=== PATIENT | male | born 1970 | race Caucasian/White ===

== ENCOUNTER 2024-10-07 15:08 | Outpatient (OUT) | payer BC, SELFPAY ==
--- OUTSIDE RECORDS SUMMARY | 2024-10-07 15:15 | XMS_ITS | Encounter Summary ---
Author Organization [employer] tem Address [id number] [address] [place] [address] Care Team Providers Care Coal Pulverizer Operator Name Role Phone Pleasant HallRenay barr SOULEYMANETOOL SETTER Primary Care Provid er Reason for Visit * Reason Comments Med Refill Encounter Details Date Type Department Care Team (Late st Contact Info) Description 09/08/2022 Refill [facility] [address] [place] [phone] Deyvi Morley, LICENSED PHYSICAL THERAPIST-TOOL SETTER [address], [facility] [address] [place] [address] Essential hypertension; Mixed hyperlipidemia Social History Tobacco Use Types Packs/Day Years Used Date Smoking Tobacco: Never Smokeless Tobacco: Never Alcohol Use Standard Drinks/Week Comments Yes 1 (1 standard drink = 0.6 oz pur e alcohol) PHQ-2 Answer Date Recorded Total Score 0 07/05/2022 Childcare Answer Date Recorded Childcare Unknown 06/14/2020 Employment Answer Date Recorded Employment Unknown 06/14/2020 Hunger Screening Answer Date Recorded Within the past 12 months we worried whether our food would run out before we got money to buy more. Never True 07/05/2022 Within the past 12 months th e food we bought just didn't last and we didn't have money to get more. Never True 07/05/2022 Purpose - Life Answer Date Recorded Purpose and direction in life Unknown Sex and Gender Information Value Date Recorded Sex Assigned at Not on file Legal Sex Male 12:19 PM EDT Gender Identity Not on file Sexual Orientation Not on file documented as of this encounter Plan of Treatment Upcoming Encounters Date Type Department Care Team (Late st Contact Info) Description 01/06/2025 4:00 PM EST Office Visit [facility] [address] [place] [phone] Renay Wilkins APRN-CNP [address] [place] [address] documented as of this encounter Visit Diagnoses Diagnosis Essential hypertension Unspecified essential hypertension Mixed hyperlipidemia documented in this encounter Additional Health Concerns Assessment Noted Time PHQ-9 Depression Total Score: 0 07/06/19 23 3:14 PM EDT documented as of this encounter Care Teams Coal Pulverizer Operator Relationship Specialty Start Date End Date Renay Wilkins APRN-CNP [address] [place] [phone] PCP - General Family Medicine 07/18/23 documented as of this encounter
--- OUTSIDE RECORDS SUMMARY | 2024-10-07 15:15 | XMS_ITS | Encounter Summary ---
Author Organization [employer] tem Address [id number] [address] [place] [address] Care Team Providers Care Tie Worker Name Role Phone Renay Wilkins Primary Care Provid er Encounter Details Date Type Department Care Team (Late Contact Info) Description 09/14/2020 Orders Only [facility] [address] [place] [address] Dorita Schreiber MA Closed nondisplaced fracture of greater tuberosity of right humerus, initial encounter Social History Tobacco Use Types Packs/Day Years Used Date Smoking Tobacco: Never Smokeless Tobacco: Never Alcohol Use Standard Drinks/Week Comments Yes 1 (1 standard drink = 0.6 oz pur e alcohol) PHQ-2 Answer Date Recorded Total Score 0 06/17/2020 Childcare Answer Date Recorded Childcare Unknown 06/14/2020 Employment Answer Date Recorded Employment Unknown 06/14/2020 Purpose - Life Answer Date Recorded Purpose and direction in life Unknown Sex and Gender Information Value Date Recorded Sex Assigned at Not on file Legal Sex Male 12:19 PM EDT Gender Identity Not on file Sexual Orientation Not on file documented as of this encounter Plan of Treatment Upcoming Encounters Date Type Department Care Team (Late Contact Info) Description 01/06/2025 4:00 PM EST Office Visit [facility] [address] [place] [phone] Renay Wilkins APRN-CNP [address] [place] [address] documented as of this encounter Procedures Procedure Name Priority Date/Time Associated Diagnosis Comments AMB REFERRAL TO ORTHOPEDIC SURGERY Routine 08/17/2020 Closed nondisplaced fracture of greater tuberosity of right humerus, initial encounter documented in this encounter Results * Ambulatory referral to Orthopedic Surgery (08/17/2020) Deyvi Morley SWING DRIVER-VP STRATEGY OUTPATIENT REFERRAL OR DERABLES Final Result MANUALLY TRANSCRIBED RESULTS documented in this encounter Visit Diagnoses Diagnosis Closed nondisplaced fracture of greater tuberosity of right humerus, initial encounter documented in this encounter Additional Health Concerns Assessment Noted Time PHQ-9 Depression Total Score: 0 06/18/19 21 3:17 PM EDT documented as of this encounter Care Teams Tie Worker Relationship Specialty Start Date End Date Renay Wilkins APRN-CNP [address], [facility] [address] [place] [phone] PCP - General Family Medicine 07/18/23 documented as of this encounter
--- OUTSIDE RECORDS SUMMARY | 2024-10-07 15:15 | XMS_ITS | Encounter Summary ---
Author Organization [facility] Address [address] [place] [address] Care Team Providers Care Automotive Technology Instructor Name Role Phone Renay Wilkins CNP Primary Care Provider [phone] Reason for Visit * Reason Comments Med Refill Encounter Details Date Type Department Care Team (Late st Contact Info) Description 09/30/2024 Refill [facility] [address] [place] [address] Larissa Guillen CNP [address] [place] [address] Primary cardiomyopathy (CMS/HCC) Social History Tobacco Use Types Packs/Day Years Used Date Smoking Tobacco: Never Smokeless Tobacco: Never Alcohol Use Standard Drinks/Week Comments Yes 0 (1 standard drink = 0.6 oz pur e alcohol) occasional [place] Safety & Environment Answer Date Rec orded Fear of Current or Ex-Partner Not on file Emotionally Abused Not on file 04/25/2023 Physically Abused Not on file 04/25/2023 Sexually Abused Not on file 04/25/2023 Physically or Sexually Abused Not on file Sex and Gender Information Value Date Recorded Sex Assigned at Not on file Legal Sex Male 11:15 PM EDT Gender Identity Not on file Sexual Orientation Not on file documented as of this encounter Plan of Treatment Not on file documented as of this encounter Visit Diagnoses Diagnosis Primary cardiomyopathy (CMS/HCC) Other primary cardiomyopathies documented in this encounter Care Teams Automotive Technology Instructor Relationship Specialty Start Date End Date Renay Wilkins CNP PCP - General Family Medicine 09/13/23 documented as of this encounter
--- OUTSIDE RECORDS SUMMARY | 2024-10-07 15:15 | XMS_ITS | Encounter Summary ---
Author Organization [employer] tem Address [id number] [address] [place] [address] Care Team Providers Care Explosive Ordnance Technician Name Role Phone [place], Renay JACKMAN Primary Care Provid er Encounter Details Date Type Department Care Team (Late Contact Info) Description 07/15/2020 Orders Only [facility] [address] [place] [address] Tana Marshall CMA Encounter for colorectal cancer screening Social History Tobacco Use Types Packs/Day Years [...] on file Sexual Orientation Not on file COVID-19 Exposure Response Date Recorded In the last month, have you been in contact with someone who was confirmed or suspected to have Coronavirus / COVID-19? No / Unsure 06/17/2020 2:59 PM EDT documented as of this encounter Plan of Treatment Upcoming Encounters Date Type Department Care Team ([facility] Contact Info) Description 01/06/2025 4:00 PM EST Office Visit [facility] [address] [facility] [address] [place] [address] Renay Wilkins APRN-CNP [address], [facility] [address] [place] [address] documented as of this encounter Procedures Procedure Name Priority Date/Time Associated Diagnosis Comments COLOGUARD NON-[facility] Routine 07/06/2020 Encounter for colorectal cancer screening documented in this encounter Results * Cologuard Non-[facility] (07/06/2020) EXTERNAL COLOGUARD Negative MANUALLY TRANSCRIBED RESULTS 07/06/2020 Deyvi JACKMAN LAB ORDERABLES Final Result MANUALLY TRANSCRIBED RESULTS documented in this encounter Visit Diagnoses Diagnosis Encounter for colorectal cancer screening documented in this encounter Additional Health Concerns Assessment Noted Time PHQ-9 Depression Total Score: 0 06/18/19 21 3:17 PM EDT documented as of this encounter Care Teams Explosive Ordnance Technician Relationship Specialty Start Date End Date Renay Wilkins APRN-CNP [address], [facility] [address] [place] [address] PCP - General Family Medicine 07/18/23 documented as of this encounter
--- OUTSIDE RECORDS SUMMARY | 2024-10-07 15:15 | XMS_ITS | Encounter Summary ---
Author Organization [employer] Address [facility]-[id number] [address] [place] [address] Care Team Providers Care Float Operator Name Role Phone Gisela Wilkinsthinicole JACKMAN Primary Care Provid er Reason for Visit * Reason Comments Med Refill Encounter Details Date Type Department Care Team (Late st Contact Info) Description 06/19/2022 Refill [facility] [address] [place] [phone] Deyvi Morley APRN-DRY WALL FINISHER [address] [address] Essential hypertension Social History Tobacco Use Types Packs/Day Years Used Date Smoking Tobacco: Never Smokeless Tobacco: Never Alcohol Use Standard Drinks/Week Comments Yes 1 (1 standard drink = 0.6 oz pur e alcohol) PHQ-2 Answer Date Recorded Total Score 0 07/04/2021 Childcare Answer Date Recorded Childcare Unknown 06/14/2020 Employment Answer Date Recorded Employment Unknown 06/14/2020 Purpose - Life Answer Date Recorded Purpose and direction in life Unknown Sex and Gender Information Value Date Recorded Sex Assigned at Not on file Legal Sex Male 12:19 PM EDT Gender Identity Not on file Sexual Orientation Not on file documented as of this encounter Miscellaneous Notes * Telephone Encounter - AUGUSTINA Whittaker - 06/19/2022 1:44 AM EDT Clarify PCP * Telephone Encounter - Tana Marshall CMA - 06/19/2022 1:44 AM EDT Patient states he was unaware that the [place] office was closing, but he is going to stay with the group. He is scheduled to see Beverley on 07/03/2022. documented in this encounter Plan of Treatment Upcoming Encounters Date Type Department Care Team (Late st Contact Info) Description 01/06/2025 4:00 PM EST Office Visit [facility] [address] [place] [phone] Renay Wilkins APRN-CNP [address] [place] [phone] documented as of this encounter Visit Diagnoses Diagnosis Essential hypertension Unspecified essential hypertension documented in this encounter Additional Health Concerns Assessment Noted Time PHQ-9 Depression Total Score: 0 07/05/19 22 2:00 PM EDT documented as of this encounter Care Teams Float Operator Relationship Specialty Start Date End Date Renay Wilkins APRN-CNP [address] [place] [phone] PCP - General Family Medicine 07/18/23 documented as of this encounter
--- OUTSIDE RECORDS SUMMARY | 2024-10-07 15:15 | XMS_ITS | Encounter Summary ---
Author Organization [employer] Address [id number] [address] [place] [address] Care Team Providers Care Baker Name Role Phone Renay Wilkins Primary Care Provid er Reason for Visit * Reason Comments Med Refill Encounter Details Date Type Department Care Team (Late st Contact Info) Description 09/20/2024 Refill [facility] [address] [place] [address] Deyvi Morley, FINANCIAL COMPLIANCE OFFICER-LICENSED RETAIL SUPERVISOR [address], [address] [place] [address] Mixed hyperlipidemia Social History Tobacco Use Types Packs/Day Years Used Date Smoking Tobacco: Never Smokeless Tobacco: Never Alcohol Use Standard Drinks/Week Comments Yes 1 (1 standard drink = 0.6 oz pur e alcohol) Overall Financial Resource Strain (CARDIA) Answe r Date Recorded How hard is it for you to pa y for the very basics like food, housing, medical care, and heating? Somewhat hard 07/16/2023 PHQ-2 Answer Date Recorded Total Score 0 01/15/2024 PRAPARE - Transportation Answer Date Re corded In the past 12 months, has l ack of transportation kept you from medical appointments or from getting medications? No 07/02 In the past 12 months, has l ack of transportation kept you from meetings, work, or from getting things needed for daily living? No 07/16/2023 Housing Instability Answer Date Recorde d Are you worried or concerned that in the next two months you may not have stable housing that you own, rent or stay in as a part of a household? No 07/16/2023 Childcare Answer Date Recorded Childcare Unknown 06/14/2020 Employment Answer Date Recorded Employment Unknown 06/14/2020 Hunger Screening Answer Date Recorded Within the past 12 months we worried whether our food would run out before we got money to buy more. Never True 01/15/2024 Within the past 12 months th e food we bought just didn't last and we didn't have money to get more. Never True 01/15/2024 Purpose - Life Answer Date Recorded Purpose and direction in life Unknown Sex and Gender Information Value Date Recorded Sex Assigned at Not on file Legal Sex Male 12:19 PM EDT Gender Identity Not on file Sexual Orientation Not on file documented as of this encounter Miscellaneous Notes * Telephone Encounter - AUGUSTINA Whittaker - 09/20/2024 6:06 PM EDT documented in this encounter Plan of Treatment Upcoming Encounters Date Type Department Care Team (Late st Contact Info) Description 01/06/2025 4:00 PM EST Office Visit [facility] [address] [facility] [address] [place] [address] Renay Wilkins APRN-CNP [address] [facility] [address] [place] [address] documented as of this encounter Visit Diagnoses Diagnosis Mixed hyperlipidemia documented in this encounter Additional Health Concerns Assessment Noted Time PHQ-9 Depression Total Score: 0 01/15/20 24 3:43 PM EST documented as of this encounter Care Teams Baker Relationship Specialty Start Date End Date Renay Wilkins APRN-CNP [address] [facility] [address] [place] [address] PCP - General Family Medicine 07/18/23 documented as of this encounter
--- OUTSIDE RECORDS SUMMARY | 2024-10-07 15:15 | XMS_ITS | Encounter Summary ---
Author Organization [employer] s [employer] Address [id number] [address] [place] [address] Care Team Providers Care Cant Hooker Name Role Phone Renay Wilkins Primary Care Provid er Encounter Details Date Type Department Care Team (Late Contact Info) Description 06/14/2020 Orders Only [facility] [address] [place] [phone] Ref Prov, [place] [address] Social History Tobacco Use Types Packs/Day Years Used Date Smoking Tobacco: Never Assessed PHQ-2 Answer Date Recorded Total Score 0 [...] Office Visit [facility] [address] [facility] [address] [place] [address] Renay Wilkins APRN-CNP [address], [address] [place] [address] documented as of this encounter Procedures Procedure Name Priority Date/Time Associated Diagnosis Comments XR SHOULDER RT MIN 2 VWS Routine 06/13/2020 documented in this encounter Results * X-ray shoulder right minimum 2 views (06/13/2020) Anatomical Region Laterality Modality MSK, Upper Extremities, Shoulder Right Computed Radiography us Not In System Ref Prov IMG DIAGNOSTIC IMAGING OR DERABLES Final Result documented in this encounter Visit Diagnoses Not on filedocumented in this encounter Care Teams Cant Hooker Relationship Specialty Start Date End Date Renay Wilkins APRN-CNP [address], [address] [place] [phone] PCP - General Family Medicine 07/18/23 documented as of this encounter
--- OUTSIDE RECORDS SUMMARY | 2024-10-07 15:15 | XMS_ITS | Encounter Summary ---
Author Organization [facility] Address [address] [place] [address] Care Team Providers Care Team Foreman Name Role Phone Latricia Ch MD Primary Care Provider Larry Joaquin MD Unavailable [phone] Bry Medina MD Unavailable [phone] Deyvi Morley CNP Primary Care Provider [phone] Encounter Details Date Type Department Care Team (Late st Contact Info) Description 03/17/2020 Telephone Cardiovascular Imaging Lab [facility] [address] [place] [address] Aida Gama RN Social History Tobacco Use Types Packs/Day Years Used Date Smoking Tobacco: Never Smokeless Tobacco: Never Alcohol Use Standard Drinks/Week Comments No 0 (1 standard drink = 0.6 oz pur e alcohol) Sex and Gender Information Value Date Recorded Sex Assigned at Not on file Legal Sex Male 11:59 AM EDT Gender Identity Male 07/04/2017 10:43 AM EDT Sexual Orientation Choose not to disclose 2024 6:01 PM EDT COVID-19 Exposure Response Date Recorded In the last month, have you been in contact with someone who was confirmed or suspected to have Coronavirus / COVID-19? Unable to assess 03/14/2020 12:57 PM EST documented as of this encounter Functional Status * Are you deaf or do you have serious difficulty hearing? Answer Date of Assessment Author No 02/14/2018 5:20 PM EST Chula Burnett RN * Are you blind or do you have serious difficulty seeing, even when wearing glasses? Answer Date of Assessment Author No 02/14/2018 5:20 PM Chula Alvarado RN * Do you have serious difficulty walking or climbing stairs (5 years or older)? Answer Date of Assessment Author No 02/14/2018 5:20 PM Chula Alvarado RN * Do you have difficulty dressing or bathing (5 yrs or older)? Answer Date of Assessment Author No 02/14/2018 5:20 PM Chula Alvarado RN * Because of a physical, mental, or emotional condition, do you have difficulty doing errands alone such as visiting a doctor's office or shopping (5 yrs or older)? Answer Date of Assessment Author No 02/14/2018 5:20 PM Chula Alvarado RN documented as of this encounter Mental Status * Because of a physical, mental, or emotional condition, do you have serious difficulty concentrating, remembering, or making decisions (5 yrs or older)? Answer Entry Date Author No 02/14/2018 5:20 PM Chula Alvarado RN documented in this encounter Miscellaneous Notes * Telephone Encounter - Aida Gama RN - 03/17/2020 1:29 PM EST PENS NOTE Called and left detailed VM to confirm arrival time 0600 03/25. Reminded to be NPO after midnight, visitor policy reviewed and to HOLD Xarelto the night before procedure. Instructed that I put COVID order in for [facility] 03/22. Number left to call with any questions COVID screening completed by asking the patient the following question: Have you had new onset of flu-like symptoms, fever, chills, or loss of taste/smell over the past 5 days? Patient answered: NO Patient informed to call the procedural department or physician if they develop any symptoms listedabove or if they have changes in health prior to their procedure. The patient was instructed to self-isolate once the covid test is collected until procedure, remaining at home or their yard, with no visitors. The patient was instructed that they are only to leave home for urgent medical care (not routine care), as long as they are wearing a facemask and performing appropriate hand hygiene. Home health visits are allowed provided both the patient and home health provider wear a facemask. Patient to arrive at [facility] testing site on 03/22 documented in this encounter Plan of Treatment Upcoming Encounters Date Type Department Care Team (Late st Contact Info) Description 06/01/2025 7:30 AM EDT Office [facility] [address] [place] [address] Jocelyne Godinez, PROGRAM CONSULTANT-AMBULANCE OFFICER [address] [place], [place] [phone] [place] [address] documented as of this encounter Visit Diagnoses Not on filedocumented in this encounter Additional Health Concerns Infection Onset Date Last Indicated Resolved Time COVID-19 Suspected 03/22/2020 03/22/2020 5:47 PM EST documented as of this encounter Care Teams Team Foreman Relationship Specialty Start Date End Date Latricia Ch MD PCP - General Internal Medicine 07/03/17 03/24/20 Larry Joaquin MD [address] [place] [phone] PCP - Referring 1 Clinical Cardiac Electrophysiology 02/13/18 Bry Medina MD [address] [place] [address] PCP - Referring 2 Cardiovascular Disease 02/14/18 Deyvi Morley CNP [address] [place] [phone] PCP - General Nurse Practitioner - Adult Health 01/05/21 documented as of this encounter
--- OUTSIDE RECORDS SUMMARY | 2024-10-07 15:15 | XMS_ITS | Clinical Summary ---
Author Organization RABT tem Address [facility] [id number] [address] [place] [address] Care Team Providers Care Head Refrigeration Engineer Name Role Phone Renay Wilkins Primary Care Provid er Allergies Active Allergy Reactions Criticality Noted Date Comments Doxycycline Rash Low 01/02/2015 Facial swelling Other Reaction(s): hives Facial swelling Facial swelling Medications rivaroxaban (XARELTO) 20 mg tablet tablet Take 1 tablet (20 mg total) by mouth daily with dinner. Active lisinopriL (PRINIVIL,ZESTRIL ) 5 mg tabletIndications :Essential hypertension TAKE 1 TABLET EVERY MORNING 90 tablet 3 023 Active Additional Information Patient taking differently: 2.5 mg oral Daily, Reported on 01/15/2024 carvediloL (COREG) 25 mg tabletIndications :Essential hypertension TAKE 1 TABLET EVERY MORNINGAND 1 TABLET EVERY EVENING WITH MEALS 180 tablet 1 025 Active cholecalciferol, vitamin D3, 2,000 units capsuleIndication s:Vitamin D deficiency TAKE 1 CAPSULE (2,000 UNITS) BY MOUTH IN THE MORNING 90 capsule 1 025 Active fenofibrate (TRICOR) 145 mg tabletIndications :Mixed hyperlipidemia TAKE 1 TABLET EVERY MORNING 90 tablet 3 025 Active fenofibrate (TRICOR) 145 mg tabletIndications :Mixed hyperlipidemia take 1 tablet every morning 90 tablet 3 024 2024 Discontinued Active Problems Problem Noted Date Diagnosed Date Closed nondisplaced fracture of greater tuberosity of right humerus 07/18/2023 Mixed hyperlipidemia 07/21/2020 Coronary atherosclerosis 06/17/2020 Overweight (BMI 25.0-29.9) 06/17/2020 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 its 06/17/2020 Cerebral infarction 10/22/2013 Overview (07/18/2023): STABLE NO WEAKNESS STABLE NO WEAKNESS Disorder of gallbladder 06/30/2013 Primary cardiomyopathy 06/23/2013 Overview (07/18/2023): IMPROVED AND RESOLVED TO NL EF W/O WMA'S IMPROVED AND RESOLVED TO NL EF W/O WMA'S Congestive heart failure 06/17/2013 Hypertensive disorder 06/17/2013 Atrial flutter 06/17/2013 PAF (paroxysmal atrial fibrillation) 06/07/2013 Overview (07/18/2023): Added automatically from request for surgery [id number] Added automatically from request for surgery [id number] Added automatically from request for surgery [id number] Added automatically from request for surgery [id number] Chest pain 06/07/2013 Resolved Problems Problem Noted Date Diagnosed Date Resolved Date Nondisplaced fracture of humerus 06/17/2020 07/04/2021 Encounters Date Type Department Care Team Description 09/20/2024 Refill [facility] [address] [place] [phone] Deyvi Morley, FOOD COURT TEAM MEMBER-SUPERVISOR MOLDING Mixed hyperlipidemia 09/02/2024 Refill [facility] [address] [place] [address] Renay Wilkins APRN-SUPERVISOR MOLDING Vitamin D deficiency 08/19/2024 Refill [facility] [address] [place] [address] Renay Wilkins, FOOD COURT TEAM MEMBER-SUPERVISOR MOLDING Essential hypertension from Last 3 Months Immunizations Immunization Administration Dates Next Due Influenza, Injectable, quadrivalent (PF) 020,12/02/2018,01/07/2018 Family History Medical History Relation Name Comments No Known Problems Brother Coronary artery disease Father Heart attack Father Hypertension Father Atrial fibrillation Mother No Known Problems Sister 1 No Known Problems Sister 2 No Known Problems Sister 3 No Known Problems Sister 4 No Known Problems Sister 5 No Known Problems Sister 6 Relation Name Status Comments Brother Alive Father Alive Mother Alive Sister 1 Alive Sister 2 Alive Sister 3 Alive Sister 4 Alive Sister 5 Alive Sister 6 Alive Social History Tobacco Use Types Packs/Day Years Used Date Smoking Tobacco: Never Smokeless Tobacco: Never Tobacco Cessation:Counseling Given: Not Answered Alcohol Use Standard Drinks/Week Comments Yes 1 [...] on file Sexual Orientation Not on file Last Filed Vital Signs Vital Sign Reading Time Taken Comments Blood Pressure 122/84 01/15/2024 3:43 PM EST Pulse 67 01/15/2024 3:43 PM EST Temperature 36.9 C (98.4 F) 06/17/2020 3:17 PM EDT Respiratory Rate 18 07/18/2023 3:34 PM EDT Oxygen Saturation 99% 01/15/2024 3:43 PM EST Inhaled Oxygen Concentration - - Weight 101.2 kg (223 lb 3.2 oz) 01/15/2024 3:43 PM EST Height 190.5 cm (6' 3 ) 01/15/2024 3:43 PM EST Body Mass Index 27.9 01/15/2024 3:43 PM EST Plan of Treatment Upcoming Encounters Date Type Department Care Team (Late st Contact Info) Description 01/06/2025 4:00 PM EST Office Visit [facility] [address] [place] [phone] FrankyRenay sampson, FOOD COURT TEAM MEMBER-SUPERVISOR MOLDING [address] [place] [address] Health Maintenance Due Date Last Done Comments Adult BMI Follow Up Plan 1986 DTaP,Tdap and Td Vaccines (1 - Tdap) 05/06/1987 Zoster (Shingles) Vaccine (1 of 2) 2018 Influenza Vaccine 11/02/2024 12/01/2019, , 01/07/2018 Adult BMI Screening 01/14/2025 01/15/2024 Depression Screening 01/14/2025 01/15/2024 Tobacco Screening 01/15/2025 01/16/2024 Medical Devices Not on file Insurance [employer] Care Teams Head Refrigeration Engineer Relationship Specialty Start Date End Date Renay Wilkins APRN-TATIANA [address], [address] [address] PCP - General Family Medicine 07/18/23
--- OUTSIDE RECORDS SUMMARY | 2024-10-07 15:15 | XMS_ITS | Encounter Summary ---
Author Organization [facility] Address [address] [place] [address] Care Team Providers Care Day Care Director Name Role Phone Latricia hC MD Primary Care Provider Larry Joaquin MD Unavailable [phone] Bry Medina MD Unavailable [phone] Deyvi Morley CNP Primary Care Provider [phone] Encounter Details Date Type Department Care Team (Late st Contact Info) Description 03/17/2020 Orders Only Cardiovascular Imaging Lab [facility] [address] [place] [address] Aida Gama RN Pre-operative cardiovascular examination (Primary Dx) Social History Tobacco Use Types Packs/Day Years [...] Chula Alvarado RN documented in this encounter Plan of Treatment Upcoming Encounters Date Type Department Care Team (Late st Contact Info) Description 06/01/2025 7:30 AM EDT [facility] [place] [address] [place] [address] Jocelyne Godinez, SIEBEL CRM DEVELOPER-RING BARKER OPERATOR [address] [place] [address] documented as of this encounter Results * NOVEL CORONAVIRUS PCR (03/22/2020 10:49 AM EST) SARS-COV-2 NOT DETECTED NOT DETECTED AURELIANO ZAPIEN 03/22/2020 5:[address] [facility] Comment:Negative results do not preclude SARS-CoV-2 infection and should not be used as the sole basis for treatment or other patient management decisions. Optimum specimen types and timing for peak viral levels during infections caused by SARS-CoV-2 has not been determined. The possibility of a false negative result should especially be considered if the patient's recent exposures or clinical presentation suggest that SARS-CoV-2 infection is probable, and diagnostic tests for other causes of illness (e.g., other respiratory illness) are negative. Collection of a new specimen and re-testing may be necessary if the patient is critically ill or clinically deteriorating. Fluid/Swab NASOPHARYNGEAL SWAB / Unknown 03/22/2020 10:49 AM EST 03/22/2020 10:49 AM EST Narrative [facility] - 03/22/2020 5:47 PM EST This test was performed using performed using real time PCR for the qualitative detection of SARS-CoV-2 nucleic acid and has been approved as Emergency Use Authorization (EUA) for the qualitative detection of SARS-CoV-2 nucleic acid. us Larry Joaquin MD MICROBIOLOGY - GENERAL ORDERABL ES Final Result [facility] [address] [address] documented in this encounter Visit Diagnoses Diagnosis Pre-operative cardiovascular examination- Primary documented in this encounter Additional Health Concerns Infection Onset Date Last Indicated Resolved Time COVID-19 Suspected 03/22/2020 03/22/2020 5:47 PM EST documented as of this encounter Care Teams Day Care Director Relationship Specialty Start Date End Date Latricia Ch MD PCP - General Internal Medicine 07/03/17 03/24/20 Larry Joaquin MD [address] [place] [address] PCP - Referring 1 Clinical Cardiac Electrophysiology 02/13/18 Bry Medina MD [address] [place] [address] PCP - Referring 2 Cardiovascular Disease 02/14/18 Deyvi Morley CNP [address] [place] [address] PCP - General Nurse Practitioner - Adult Health 01/05/21 documented as of this encounter
--- OUTSIDE RECORDS SUMMARY | 2024-10-07 15:15 | XMS_ITS | Clinical Summary ---
Author Organization [facility] Address [address] [place] [address] Care Team Providers Care Loom Starter Name Role Phone Larry Joaquin MD Unavailable Bry Medina MD Unavailable [phone] Deyvi Morley CNP Primary Care Provider [phone] Allergies Active Allergy Reactions Criticality Noted Date Comments Doxycycline Rash 02/14/2018 Facial swelling Medications carveDILOL 12.5 MG Tab tablet Take 1 tablet by mouth 2 times daily. Active Rivaroxaban 20 MG tablet Take 1 tablet by mouth daily with dinner. Active fenofibrate 145 MG tablet Take 1 tablet by mouth daily. 09/28/2021 Active Lisinopril 2.5 MG tablet Take 1 tablet by mouth daily. 90 tablet 3 02/05/2023 Active VITAMIN E PO Take 1 capsule by mouth daily. Active Active Problems Problem Noted Date Diagnosed Date Mixed hyperlipidemia 07/21/2020 ASHD (arteriosclerotic heart disease) 06/17/2020 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 its 06/17/2020 Overweight (BMI 25.0-29.9) 06/17/2020 Atrial fibrillation, persistent 02/09/2020 Overview (02/09/2020): Added automatically from request for surgery [id number] PAF (paroxysmal atrial fibrillation) 10/11/2017 Overview (10/11/2017): Added automatically from request for surgery [id number] Acute ill-defined cerebrovascular disease 2013 Disorder of gallbladder 06/30/2013 Primary cardiomyopathy 06/23/2013 Congestive heart failure 06/17/2013 Encounters Date Type Department Care Team Description 08/23/2024 - 08/23/2024 11:59 PM EDT Hospital Encounter [facility] [address] [place] [address] Arrived Discharge Disposition: Home or Self Care from Last 3 Months Family History Medical History Relation Name Comments Asthma Father Arrhythmia Mother AFIB Diabetes Mother Asthma Sister Relation Name Status Comments Father Alive Mother Alive Sister Social History Tobacco Use Types Packs/Day Years Used Date Smoking Tobacco: Never Smokeless Tobacco: Never Tobacco Cessation:Counseling Given: Not Answered Alcohol Use Standard Drinks/Week Comments No 0 (1 standard drink = 0.6 oz pur e alcohol) Sex and Gender Information Value Date Recorded Sex Assigned at Not on file Legal Sex Male 11:59 AM EDT Gender Identity Male 07/04/2017 10:43 AM EDT Sexual Orientation Choose not to disclose 2024 6:01 PM EDT Last Filed Vital Signs Vital Sign Reading Time Taken Comments Blood Pressure 124/83 06/01/2024 9:16 AM EDT Pulse 69 06/01/2024 9:16 AM EDT Temperature 36.2 C (97.2 F) 02/03/2021 8:15 AM EST Respiratory Rate 18 06/01/2024 9:16 AM EDT Oxygen Saturation 98% 06/01/2024 9:16 AM EDT Inhaled Oxygen Concentration - - Weight 100.1 kg (220 lb 9.6 oz) 06/01/2024 9:16 AM EDT Height 190.5 cm (6' 3 ) 06/01/2024 9:16 AM EDT Body Mass Index 27.57 06/01/2024 9:16 AM EDT Plan of Treatment Upcoming Encounters Date Type Department Care Team (Late st Contact Info) Description 06/01/2025 7:30 AM EDT [facility] [place] [address] [place], [place] [id number] Jocelyne Godinez, RESIDENTIAL DESIGNER-WHEEL FITTER [address] [place] [address] Health Maintenance Due Date Last Done Comments HEPATITIS C VIRUS SCREENING 1968 TETANUS 1968 HIV SCREENING DISCUSSION 05/06/1983 HEP B VACCINE (1 of 3 - 19+ 3-dose series) 05/06/1987 TDAP (ADULT) 05/06/1987 LIPID SCREENING 2008 PNEUMOCOCCAL VACCINE SERIES (1 of 1 - PCV) 2018 ZOSTER (SHINGLES) VACCINE (1 of 2) 2018 COLORECTAL CANCER SCREENING DISCUSSION 07/06/2021 07/06/2020 PROSTATE CANCER SCREENING DISCUSSION 05/06/2023 COVID-19 VACCINE ( season) 2023 INFLUENZA VACCINE (#1) 2024 , 12/02/2018, 01/07/2018 Medical Devices Implanted Type Area Oracle Apex Developer Device Identifier Shelf Expiration Date Model / Serial / Lot System Clin Nurse Spec Insertable Reveal Linq - [id number] Implanted:Qty: 1 on 02/03/2021 by Larry Joaquin MD at [facility] Loop Recorder N/A: Chest [employer] [id number] 10/15/2021 LNQ11 / [id number] / System Clsr Vascade Mvp Vns 6-12fr - [id number] Implanted:Qty: 1 on 03/25/2020 by Chandrakant Amaral MBBS at [facility] Other [facility] [id number]- 10U / [id number] 18A / System Clsr Vascade Mvp Vns 6-12fr - [id number] Implanted:Qty: 1 on 03/25/2020 by Chandrakant Amaral MBBS at [facility] Other [facility] 800-612C- 10U / [id number] 18A / System Clsr Vascade Mvp Vns 6-12fr - [id number] Implanted:Qty: 1 on 03/25/2020 by Chandrakant Amaral MBBS at [facility] 800-612C- 10U / [id number] 18A / Procedures Procedure Name Priority Date/Time Associated Diagnosis Comments DEVICE EVALUATION 08/23/2024 from Last 3 Months Results * DEVICE EVALUATION (08/23/2024) Anatomical Region Laterality Modality Other 08/23/2024 us Other Other OT PROC - OPERATIVE Final Result from Last 3 Months Insurance [facility] PPO POS Advance Directives For more information, please contact: [phone] (7:30 AM - 6PM [facility], Saturday-Saturday) * Full Code (Latest Code Status on File) Date Activated Date Inactivated Comments 02/03/2021 8:16 AM * Full Code Date Activated Date Inactivated Comments 03/25/2020 11:16 AM 02/03/2021 8:16 AM * Full Code Date Activated Date Inactivated Comments 02/14/2018 1:09 PM 03/25/2020 11:16 AM Care Teams Loom Starter Relationship Specialty Start Date End Date Larry Joaquin MD [address] [place] [address] PCP - Referring 1 Clinical Cardiac Electrophysiology 02/13/18 Bry Medina MD [address] [place] [address] PCP - Referring 2 Cardiovascular Disease 02/14/18 Deyvi Morley CNP [address] [place] [phone] PCP - General Nurse Practitioner - Adult Health 01/05/21
--- OUTSIDE RECORDS SUMMARY | 2024-10-07 15:15 | XMS_ITS | Clinical Summary ---
Author Organization [facility] Address [address] [place] [address] Care Team Providers Care Gravel Truck Driver Name Role Phone Renay Wilkins CNP Primary Care Provider [phone] Allergies Active Allergy Reactions Criticality Noted Date Comments Doxycycline Rash Low 01/02/2015 Facial swelling Facial swelling Medications fenofibrate (Tricor) 145 mg tablet Take 1 tablet by mouth in the morning. 09/11/19 23 Active carvedilol (Coreg) 25 mg tablet TAKE 1 TABLET BY MOUTH TWICE A DAY DIRECTED 08/12/19 23 Active Xarelto 20 mg tabletIndications :Unspecified atrial fibrillation (CMS/HCC) TAKE 1 TABLET BY MOUTH EVERY DAY IN THE MORNING 30 tablet 11 02/03/20 24 Active cholecalciferol, vitamin D3, 50 mcg (2,000 unit) capsule Take 2,000 Units by mouth in the morning. Active lisinopril 2.5 mg tabletIndications :Primary cardiomyopathy (CMS/HCC) TAKE 1 TABLET ONCE DAILY ASDIRECTED 90 tablet 3 10/01/19 25 Active lisinopril 2.5 mg tabletIndications :Primary cardiomyopathy (CMS/HCC) Take 1 tablet (2.5 mg) by mouth once daily as directed. 90 tablet 3 09/13/19 24 2024 Discontinued Active Problems Problem Noted Date Diagnosed Date Nondisplaced fracture of gre ater tuberosity of right humerus, initial encounter for closed fracture 07/18/2023 Coronary atherosclerosis 09/24/2022 023 Assessment & Plan (09/13/2023 3:24 PM EDT): Coronary artery disease is unchanged. Continue current medications. Cardiac status will be reassessed in 1 year. Continue GDMT Mixed hyperlipidemia 07/21/2020 09/24/2022 Assessment & Plan (09/13/2023 3:22 PM EDT): Lipid abnormalities are unchanged. Pharmacotherapy as ordered. Lipids will be reassessed by PCP at [place] for 1 year ASHD (arteriosclerotic heart disease) 06/17/2020 09/24/2022 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 its 06/17/2020 09/24/2022 Overweight (BMI 25.0-29.9) 06/17/202009/24 Cerebral infarction 10/22/2013 09/24/2022 Overview (09/24/2022): STABLE NO WEAKNESS Hypertensive disorder 10/18/2013 09/24/2022 PAF (paroxysmal atrial fibrillation) 07/24/2013 09/24/2022 Overview (09/24/2022): Added automatically from request for surgery [id number] Added automatically from request for surgery [id number] Assessment & Plan (09/13/2023 3:19 PM EDT): [facility] monitors ILR Remains on xarelto anticoagulation and denied any bleeding tendencies Continue coreg- rate controlled and in rhythm per assessement Acute ill-defined cerebrovascular disease 201309/24/2022 Disorder of gallbladder 06/30/2013 09/25/19 23 Primary cardiomyopathy 06/23/2013 3 Overview (09/24/2022): IMPROVED AND RESOLVED TO NL EF W/O WMA'S Assessment & Plan (09/13/2023 3:18 PM EDT): LVSF recovered No concerning symptoms currently Continue Coreg, lisinopril and tricor Essential hypertension 06/17/2013 3 Assessment & Plan (09/13/2023 3:23 PM EDT): Hypertension is unchanged. Continue current medications. Blood pressure will be reassessed at the next regular appointment. Atrial flutter 06/17/2013 09/24/2022 Congestive heart failure 06/17/2013 023 Atrial fibrillation, persistent 06/07/2013 09/24/2022 Overview (09/24/2022): Added automatically from request for surgery [id number] Chest pain 06/07/2013 09/24/2022 Encounters Date Type Department Care Team Description 09/30/[address] [address] Larissa Guillen CNP Primary cardiomyopathy (CMS/HCC) 08/24/2024 3:00 PM EDT Office Visit [place] [address] [place] [address] Rai Graves MD PAF (paroxysmal atrial fibrillation) (CMS/HCC) (Primary Dx); Heart failure with improved ejection fraction (HFimpEF) (CMS/HCC); Primary hypertension; Coronary artery disease involving lone pine coronary artery of lone pine heart without angina pectoris; S/P ablation of atrial fibrillation; History of cerebrovascular accident from Last 3 Months Family History Medical History Relation Name Comments Coronary artery disease Mother Atrial fibrillation Other Relation Name Status Comments Father Alive Mother Alive Other Social History Tobacco Use Types Packs/Day Years [...] Sign Reading Time Taken Comments Blood Pressure 112/78 08/24/2024 3:17 PM EDT Pulse 78 08/24/2024 3:17 PM EDT Temperature - - Respiratory Rate - - Oxygen Saturation 98% 08/24/2024 3:17 PM EDT Inhaled Oxygen Concentration - - Weight 103 kg (228 lb) 08/24/2024 3:17 PM EDT Height 188 cm (6' 2 ) 08/24/2024 3:17 PM EDT Body Mass Index 29.27 08/24/2024 3:17 PM EDT Plan of Treatment Health Maintenance Due Date Last Done Comments CT Colonography 1968 Colonoscopy 1968 FIT-DNA 1968 FOBT 1968 Medicare Annual Wellness (AWV) 1968 Sigmoidoscopy 1968 Depression Screening 1980 Hepatitis B Vaccines (1 of 3 - 19+ 3-dose series) 05/06/1987 Pneumococcal Vaccine: Pediatrics (0 to 5 Years) and At-Risk Patients (6 to 64 Years) (1 of 2 - PCV) 05/06/1987 Adult Tetanus 1990 Zoster Vaccines (1 of 2) 2018 COVID-19 Vaccine (2023-2 5 season) 2023 Colorectal Cancer Screening 08/03/2024 FIT 08/03/2024 08/04/2023 Influenza Vaccine (#1) 2024 0, 12/02/2018, 01/07/2018 HIB Vaccines Aged Out No longer eligi ble based on patient's age to complete this topic HPV Vaccines Aged Out No longer eligi ble based on patient's age to complete this topic IPV Vaccines Aged Out No longer eligi ble based on patient's age to complete this topic Meningococcal B Vaccine Aged Out No l onger eligible based on patient's age to complete this topic Meningococcal Vaccine Aged Out No candy antonella eligible based on patient's age to complete this topic Rotavirus Vaccines Aged Out No longer eligible based on patient's age to complete this topic Insurance [employer] MEDICARE Member Subscriber Plan / Payer (Ef fective 2019-Present) Name:Keegan Morales Relation to Subscriber:Self Name:Keegan Morales Payer ID:[id number] Type:Not on file Address: [address] [place] [address] [place] [address] Care Teams Gravel Truck Driver Relationship Specialty Start Date End Date Renay Wilkins CNP PCP - General Family Medicine 09/13/23
--- OUTSIDE RECORDS SUMMARY | 2024-10-07 15:15 | XMS_ITS | Patient Health Record ---
Author Organization [facility] Address [address] [place] [address] Care Team Providers Care J2Ee Architect Name Role Phone Reza Lai Unavailable [phone] Deyvi Morley Unavailable Unavailable Allergies Allergen (clinical drug ingredient) Drug/Non Drug Allergy documented on EMR Reaction Allergy Type Onset Date Status doxycycline doxycycline hives Drug Allergy Act italo Reason For Referral No Information Medications Medication SIG (Take, Route, Frequency, Duration) Notes Start Date End Date Status carvedilol Active propafenone Active Xarelto Active lisinopril Active Social History Tobacco Use: Social History Observation Description Date Details (start date - stop date) Never Smoker NA - NA Smoking History Question Answer Notes Smoking Status NonSmoker Problems Problem Type SNOMED Code ICD Code Onset Dates Problem Status W/U Status Risk Notes Problem 840093946 Nondisplaced fracture of greater tuberosity of right humerus, subsequent encounter for fracture with routine healing (S42.254D) Active confirmed Problem 074065733 Closed nondisplaced fracture of greater tuberosity of right humerus, initial encounter (S42.254A) Active confirmed Plan Of Treatment No Information Insurance Providers Payer Name Payer Address Payer Phone Subscriber Number Group Number Insured Name Patient Relationship to Insured Coverage Start Date Coverage End Date [facility] [employer] [place] [id number] [place] [address] [id number] Keegan Mckeon Self - patient is the insured Medical (General) History Medical History History ICD Code Heart problems: Yes Stroke: Yes Blood Clots: Yes High Blood Pressure: Yes Drug Allergies: Yes Surgical History Surgery Date(Month/Year) ATRIAL ABLATION 03/25/2020
--- OUTSIDE RECORDS SUMMARY | 2024-10-07 15:15 | XMS_ITS | Encounter Summary ---
Author Organization [facility] Address [address] [place] [address] Care Team Providers Care Hemmer Chainstitch Name Role Phone Keren Lawson Primary Care Provider + Renay Wilkins CNP Primary Care Provider [phone] Reason for Visit * Reason Comments Med Refill Encounter Details Date Type Department Care Team (Late st Contact Info) Description 02/14/2023 Refill [facility] Cardiology [address] [place] [phone] Radha Vivar CNP [address] [place] [address] Unspecified atrial fibrillation (CMS/HCC) Social History Tobacco Use Types Packs/Day Years Used Date Smoking Tobacco: Never Smokeless Tobacco: Never Alcohol Use Standard Drinks/Week Comments Yes 0 (1 standard drink = 0.6 oz pur e alcohol) occasional Sex and Gender Information Value Date Recorded Sex Assigned at Not on file Legal Sex Male 11:15 PM EDT Gender Identity Not on file Sexual Orientation Not on file documented as of this encounter Plan of Treatment Not on file documented as of this encounter Visit Diagnoses Diagnosis Unspecified atrial fibrillation (CMS/HCC) documented in this encounter Care Teams Hemmer Chainstitch Relationship Specialty Start Date End Date Keren Lawson APRN-CNM PCP - General 09/24/22 09/12/23 Renay Wilkins CNP PCP - General Family Medicine 09/13/23 documented as of this encounter
--- OUTSIDE RECORDS SUMMARY | 2024-10-07 15:15 | XMS_ITS | Encounter Summary ---
Author Organization [facility] Address [address] [place] [address] Care Team Providers Care Travel Counselor Name Role Phone Keren Lawson Primary Care Provider + Renay Wilkins CNP Primary Care Provider [phone] Reason for Visit * Reason Comments Med Refill Encounter Details Date Type Department Care Team (Late st Contact Info) Description 01/24/[address] [facility] Cardiology [address] [place] [id number] Radha Vivar CNP [address] [place] [address] Unspecified atrial fibrillation (CMS/HCC) Social History Tobacco Use Types Packs/Day Years Used Date Smoking Tobacco: Never Assessed Sex and Gender Information Value Date Recorded Sex Assigned at Not on file Legal Sex Male 11:15 PM EDT Gender Identity Not on file Sexual Orientation Not on file documented as of this encounter Plan of Treatment Not on file documented as of this encounter Visit Diagnoses Diagnosis Unspecified atrial fibrillation (CMS/HCC) documented in this encounter Care Teams Travel Counselor Relationship Specialty Start Date End Date Keren Lawson APRN-CNM PCP - General 09/24/22 09/12/23 Renay Wilkins CNP PCP - General Family Medicine 09/13/23 documented as of this encounter
--- NOTE | 2024-10-07 15:30 | CA_ITS ---
Patient Name: ESTEPHANIA MCKEON MR#: [id number] : 1970 Exam Date: 10/07/2024 Ordering Doctor: DR MAX GRAVES M.D. ECHOCARDIOGRAM REPORT PROCEDURE: CA ECHO DOPPLER COMPLETE INDICATIONS: Atrial fibrillation, heart failure with reduced ejection fraction, hypertension COMPARISON: None. DESCRIPTION: COMPLETE ECHOCARDIOGRAM Real-time transthoracic echocardiography with 2D, M-mode, spectral and color flow Doppler performed. QUALITY: Technical quality was good. LEFT VENTRICLE: Normal chamber size. Borderline left ventricular hypertrophy. Normal systolic function. LV EF: Normal left ventricular ejection fraction, (65%). DIASTOLIC: Normal diastolic function. ATRIAL SEPTUM: Visually appears intact. LEFT ATRIUM: Normal chamber size. RIGHT ATRIUM: Normal chamber size. RIGHT VENTRICLE: Normal chamber size. Normal right ventricular systolic function. TRICUSPID VALVE: Normal mobility and thickness. No stenosis with trivial regurgitation. Normal right-sided pressures. RVSP is 24 mmHg. MITRAL VALVE: Normal mobility and thickness. No evidence of mitral valve stenosis. There is no mitral annular calcification. Trivial mitral regurgitation. AORTIC VALVE: Normal trileaflet appearance. No visible sclerosis. Normal leaflet mobility. No evidence of aortic valve stenosis. No aortic regurgitation. AORTIC ROOT: Normal diameter and appearance, measuring 3.4 cm. Ascending aorta is normal in size, measuring 3.0 cm. PULMONIC VALVE: Normal thickness and mobility. No stenosis. Trivial regurgitation. PERICARDIUM: No evidence of pericardial effusion. IVC: Collapses with inspiration. IVC is normal in size. PLEURA: CONCLUSION: 1. Borderline left ventricular hypertrophy with normal systolic function. Estimated LVEF is 65%. 2. Normal right ventricular size and systolic function. 3. Normal diastolic function. 4. No significant valvular dysfunction. 5. Normal right-sided pressures. Adult Echocardiography Procedure Report Left Ventricle LVEDD (3.7 - 5.6 cm): 4.46 cm LVESD (2.2 - 4.0 cm): 3.56 cm LVIVS thickness (0.6 - 1.2 cm): 1.12 cm LVPW thickness (0.5 - 1.0 cm): 1.14 cm e': 0.13 m/s E - e': 6.83 LVOT Max Gradient: 4.82 mm[Hg] LVOT Area (cm2): 1.10 m/s Peak Velocity (LVOT): 1.10 m/s Mean Velocity (LVOT): 0.76 m/s LVOT Diameter 2.57 cm Left Ventricular Ejection Fraction: 65 % Left Atrium LA Volume Index (2D A2C): 26.44 ml/m2 Left Atrium Systolic Dimension: 4.39 cm Mitral Valve MV E to A Ratio: 1.35 Mitral Valve A-Wave Peak Velocity: 0.67 m/s Mitral Valve E-Wave Peak Velocity: 0.91 m/s Right Ventricle Aorta AO Root Diam: 3.36 cm Ascending Ao Diam: 2.96 cm Aortic Valve AoV Area (Peak Adam): 4.78 cm2, 4.78 cm2 AoV Area (VTI): 4.21 cm2, 4.21 cm2 Peak Velocity(Antegrade Flow): 1.19 m/s Peak Gradient(Antegrade Flow): 5.65 mm[Hg] Mean Velocity(Antegrade Flow): 0.86 m/s Mean Gradient(Antegrade Flow): 3.36 mm[Hg] Velocity Time Integral: 27.21 cm Tricuspid Valve Peak Velocity (Regurgitant Flow): 2.30 m/s Pulmonic Valve Peak Gradient: 5.59 mm[Hg], 7.03 mm[Hg] Right Atrium Right Atrium Systolic Pressure: 42.78 ml, 42.78 ml Dictated by: Max Graves M.D. on 10/07/2024 at 18:32 Approved by: Max Graves M.D. on 10/07/2024 at 18:35
== END 2024-10-07 15:09 | disposition home or self-care (01) ==
PROVIDERS: Visit Provider Internal Medicine Interventional Cardiology
DX: I48.0 Paroxysmal atrial fibrillation (principal); I50.32 Chronic diastolic (congestive) heart failure
CPT/HCPCS: 93306